=== PATIENT | female | born 1970 | race Caucasian/White ===

== ENCOUNTER → 2018-03-14 | Outpatient (REF) | payer OTHER ==
[2018-03-14 19:10] LABS: APPEARANCE, URINE CLEAR (CLEAR); BACTERIA, URINE AUTO NEGATIVE (NEGATIVE); BILIRUBIN, URINE AUTO NEGATIVE (NEGATIVE); BLOOD, URINE BLOOD NEGATIVE (NEGATIVE); COLOR, URINE YELLOW (YELLOW); GLUCOSE, URINE (UA) AUTO NEGATIVE (NEGATIVE); KETONE, URINE AUTO TRACE mg/dL (NEGATIVE); LEUKOCYTE ESTERASE, URINE AUTO NEGATIVE (NEGATIVE); MUCUS, URINE SMALL (NEGATIVE); NITRITE, URINE AUTO NEGATIVE (NEGATIVE); PROTEIN, URINE AUTO NEGATIVE (NEGATIVE); RBC, URINE AUTO 2 /HPF (0-3); SPECIFIC GRAVITY URINE AUTO 1.017 (1.002-1.035); SQUAMOUS EPITHELIAL CELL UR AU 1 /HPF (0-6); UROBILINOGEN, URINE AUTO 0.2 mg/dL (0.0-2.0); WBC, URINE AUTO 0 /HPF (0-3)
== END ==
LOC: M LAB REF 16:27
DX: N39.3 Stress incontinence (female) (male) (principal)
CPT/HCPCS: 81001

== ENCOUNTER 2018-06-16 12:25 | Emergency (ER) | payer OTHER ==
[~2018-06-16] VITALS: Ht 162.6 cm; Wt 65.9 kg
[2018-06-16 12:27] VITALS: BP 160/100
[2018-06-16] MEDS ORDERED: PERI12LIQ PO (12:38)
[2018-06-16] MEDS ORDERED: ENDO7.5T11 PO (13:01)
[2018-06-16] MEDS ORDERED: AMOX500T2 PO (13:01)
== END 2018-06-16 13:13 | disposition home or self-care (01) ==
LOC: M ED 12:25
DX: K12.2 Cellulitis and abscess of mouth (principal); I10 Essential (primary) hypertension; R51 Headache; F43.10 Post-traumatic stress disorder, unspecified; Z72.0 Tobacco use; Z79.899 Other long term (current) drug therapy

== ENCOUNTER → 2019-11-02 | Outpatient (REF) | payer OTHER ==
[~2019-11-02] MED LIST: AMOX500T2 PO; ENDO7.5T11 PO; PERI12LIQ PO
== END ==
LOC: M LAB REF 11:56
PROVIDERS: ATTEND Physician Assistant
DX: N39.0 Urinary tract infection, site not specified (principal)